=== PATIENT | male | born 1965 | race Caucasian/White ===

== ENCOUNTER 2019-07-10 01:04 | Inpatient (IN) | payer BC ==
[2019-07-10] VITALS (7 sets, daily range): BP systolic 112–163; BP diastolic 75–104
[~2019-07-10] VITALS: Ht 182.9 cm; Wt 107.9 kg
[~2019-07-10 01:04] MED LIST: ALPR0.5T7 PO; ASPI-430 PO; ATOR20TA37 PO; CYCL-259 PO; ISOS30TA8 PO; LISI1TAB20 PO; LISI5TAB7 PO; METF500T17 PO; METO25TA2 PO; METO25TA35 PO; NITR0.4T41 SL; PRAS10TA4 PO; ROSU40TA PO; SIMV40TA PO
--- NOTE | 2019-07-10 01:10 | NUR ---
EKG DONE IN TRIAGE
--- NOTE | 2019-07-10 01:26 | NUR ---
THIS IS A 53Y M THAT COMES IN FOR FEELINGS OF SHORTNESS OF BREATH, CHEST PRESSURE AND AN EMPTY FEELING IN HIS CHEST/ HEART. PT STS HE FEELS LIKE MAYBE THINGS ARE JUST CONSTRICTED AND MAYBE HIS HEART JUST ISN'T GETTING ANY BLOOD SUPPLY. PT CONNECTED TO ALL MONITORING, VSS, NADN, PT SPEAKING IN FULL SENTENCES SKIN WARM AND DRY WITH GOOD COLOR. PT RESTING ON GURNEY. CALL LIGHT IN REACH
[2019-07-10] MEDS ORDERED: ASPIRIN 325 MG TABLET PO ONE (02:00)
[2019-07-10 02:02] LABS: BASOPHILS # (AUTO) 0.06 x10^3/uL (0-0.1); BASOPHILS % (AUTO) 1 % (0-1); EOSINOPHILS # (AUTO) 0.83 x10^3/uL (0-0.4); EOSINOPHILS % (AUTO) 7 % (1-7); LYMPHOCYTES # (AUTO) 4.07 x10^3/uL (1-3.4); LYMPHOCYTES % (AUTO) 35 % (22-44); MD NO; MEAN CORPUSCULAR HEMOGLOBIN 29.6 pg (27.5-34.5); MEAN CORPUSCULAR HGB CONC 33.5 g/dL (33.2-36.2); MEAN CORPUSCULAR VOLUME 88.3 fL (81-97); MEAN PLATELET VOLUME 8.6 fL (7.4-10.4); MONOCYTES # (AUTO) 0.82 x10^3/uL (0.2-0.8); MONOCYTES % (AUTO) 7 % (2-9); NEUTROPHILS # (AUTO) 5.95 x10^3/uL (1.8-6.8); NEUTROPHILS % (AUTO) 51 % (42-75); PLATELET COUNT 268 x10^3/uL (130-400); RED CELL DISTRIBUTION WIDTH 12.9 % (9.4-14.8)
--- NOTE | 2019-07-10 02:10 | NUR ---
PER PT HE HAS TAKEN 2 ASA MD LALO UPDATED
[2019-07-10 02:14] LABS: ALBUMIN 3.7 g/dL (3.4-5.0); ANION GAP 8 mmol/L (5-15); CALCIUM 8.5 mg/dL (8.5-10.1); CHLORIDE 111 mmol/L (98-107)
[2019-07-10 02:18] LABS: TROPONIN I < 0.015 ng/mL (0.000-0.045)
[2019-07-10] MEDS ORDERED: SODIUM CHLORIDE 0.9% 1,000 ML IV SCH (02:59)
[2019-07-10] MEDS ORDERED: hydrALAzine 20 MG/ML, 1ML IVPush PRN (03:00)
[2019-07-10] MEDS ORDERED: PROMETHAZINE 25 MG/ML, 1ML IM PRN (03:00)
[2019-07-10] MEDS ORDERED: POLYETHYLENE GLYCOL 17 GM PACKET PO PRN (03:00)
[2019-07-10] MEDS ORDERED: BISACODYL 10 MG SUPP PR PRN (03:00)
[2019-07-10] MEDS ORDERED: ACETAMINOPHEN 325 MG TABLET PO PRN ×2 (03:00→08:30)
[2019-07-10] MEDS ORDERED: OXYcodone IR 5MG TABLET PO PRN (03:00)
[2019-07-10] MEDS ORDERED: DOCUSATE 100 MG CAPSULE PO PRN (03:00)
[2019-07-10] MEDS ORDERED: ONDANSETRON ODT 4 MG PO PRN (03:00)
[2019-07-10] MEDS ORDERED: morphine SULFATE 10 MG/ML, 1ML IVPush PRN ×2 (03:00→09:00)
[2019-07-10] MEDS ORDERED: ONDANSETRON 2MG/ML, 2ML IVPush PRN (03:00)
--- NOTE | 2019-07-10 03:04 | NUR ---
HOSPITALIST AT BEDSIDE TO ADMIT PT
[2019-07-10 03:40] LABS: FREE T4 (FREE THYROXINE) 0.95 ng/dL (0.76-1.46)
[2019-07-10] MEDS: HEPARIN 5,000 UNITS/ML, 1ML SQ SCH ×3 (03:44→20:58)
[2019-07-10] MEDS ORDERED: ASPI-647 PO (04:52)
[2019-07-10] MEDS ORDERED: CARV25TA PO (04:54)
[2019-07-10] MEDS ORDERED: ASPIRIN 325 MG TABLET EC PO SCH (06:00)
[2019-07-10] MEDS ORDERED: CARVEDILOL 6.25 MG TABLET PO SCH (06:00)
[2019-07-10 06:27] LABS: TROPONIN I < 0.015 ng/mL (0.000-0.045)
[2019-07-10] MEDS: INSULIN LISPRO 100 UNITS/ML, PEN SQ-INSULIN SCH ×4 (08:31→20:58)
[2019-07-10] MEDS ORDERED: REGADENOSON 0.4 MG/5 ML SYRINGE ONE (09:02)
[2019-07-10 12:56] LABS: TROPONIN I < 0.015 ng/mL (0.000-0.045)
[2019-07-10 12:57] LABS: ALBUMIN 3.8 g/dL (3.4-5.0); BILIRUBIN, DIRECT 0.1 mg/dL (0.1-0.2)
[2019-07-10 12:59] LABS: BILIRUBIN,INDIRECT 0.5 mg/dL (0.0-2.0); BILIRUBIN,TOTAL 0.6 mg/dL (0.2-1.0); CHOL/HDL RATIO 6.3; LDL/HDL RATIO 4.1 (0.5-3.0); TOTAL PROTEIN 7.3 g/dL (6.4-8.2)
[2019-07-10] MEDS ORDERED: MAALOX/HYOSCYAMINE/LIDOCAINE 45 ML BTL PO ONE (13:30)
[2019-07-10] MEDS ORDERED: BUSP10TA PO (15:30)
[2019-07-10] MEDS: CARVEDILOL 6.25 MG TABLET PO SCH (18:28)
[2019-07-10] MEDS ORDERED: NITROGLYCERIN 0.4 MG/SPRAY SL PRN (18:30)
[2019-07-10] MEDS ORDERED: NITROGLYCERIN 0.4 MG BOTTLE (25 TABS) SL PRN (18:30)
[2019-07-10] MEDS: NITROGLYCERIN 0.4 MG BOTTLE (25 TABS) SL PRN ×2 (18:49→18:55)
[2019-07-10] MEDS: ATORVASTATIN 40 MG TABLET PO SCH (20:58)
[2019-07-10] MEDS ORDERED: MELATONIN 5 MG TABLET PO PRN (21:30)
[2019-07-11] MEDS: SODIUM CHLORIDE 0.9% 1,000 ML IV SCH ×5 (01:39→20:00)
[2019-07-11 01:53] VITALS: BP 135/94
[2019-07-11 05:13] LABS: BASOPHILS # (AUTO) 0.06 x10^3/uL (0-0.1); BASOPHILS % (AUTO) 1 % (0-1); EOSINOPHILS # (AUTO) 0.51 x10^3/uL (0-0.4); EOSINOPHILS % (AUTO) 5 % (1-7); LYMPHOCYTES # (AUTO) 3.47 x10^3/uL (1-3.4); LYMPHOCYTES % (AUTO) 34 % (22-44); MD NO; MEAN CORPUSCULAR HEMOGLOBIN 30.2 pg (27.5-34.5); MEAN CORPUSCULAR VOLUME 88.6 fL (81-97); MEAN PLATELET VOLUME 8.6 fL (7.4-10.4); MONOCYTES # (AUTO) 0.85 x10^3/uL (0.2-0.8); MONOCYTES % (AUTO) 8 % (2-9); NEUTROPHILS # (AUTO) 5.27 x10^3/uL (1.8-6.8); NEUTROPHILS % (AUTO) 52 % (42-75); PLATELET COUNT 262 x10^3/uL (130-400); RED BLOOD COUNT 4.75 x10^6/uL (4.38-5.82); RED CELL DISTRIBUTION WIDTH 12.8 % (9.4-14.8)
[2019-07-11 05:24] LABS: ALANINE AMINOTRANSFERASE 24 U/L (12-78); ALBUMIN 3.4 g/dL (3.4-5.0); ANION GAP 8 mmol/L (5-15); CALCIUM 8.2 mg/dL (8.5-10.1); CHLORIDE 109 mmol/L (98-107)
[2019-07-11 05:27] LABS: ALKALINE PHOSPHATASE 48 U/L (45-117); BILIRUBIN,TOTAL 0.8 mg/dL (0.2-1.0); CHOL/HDL RATIO 5.9; CHOLESTEROL, TOTAL 217 mg/dL (140-239); CREATININE 1.18 mg/dL (0.7-1.3); HDL CHOL % 17 % (26-37); HDL CHOLESTEROL (DIRECT) 37 mg/dL (40-60); LDL CHOLESTEROL,CALCULATED 124 mg/dL (54-169); LDL/HDL RATIO 3.4 (0.5-3.0); TOTAL PROTEIN 6.8 g/dL (6.4-8.2); TRIGLYCERIDES 281 mg/dL (50-200); VLDL CHOLESTEROL 56 mg/dL (0-25)
[2019-07-11] MEDS: ASPIRIN 81 MG TABLET EC PO SCH (05:46)
[2019-07-11] MEDS: HEPARIN 5,000 UNITS/ML, 1ML SQ SCH ×3 (05:46→21:50)
[2019-07-11] MEDS: CARVEDILOL 6.25 MG TABLET PO SCH ×2 (05:47→17:24)
[2019-07-11] MEDS: INSULIN LISPRO 100 UNITS/ML, PEN SQ-INSULIN SCH ×4 (07:19→21:00)
[2019-07-11 07:40] VITALS: BP 138/87
[2019-07-11 12:40] VITALS: BP 168/98
[2019-07-11] MEDS ORDERED: MIDAZOLAM 1 MG/ML, 5ML ONE (15:34)
[2019-07-11] MEDS ORDERED: VERAPAMIL 2.5 MG/ML, 2ML ONE (15:34)
[2019-07-11] MEDS ORDERED: FENTANYL PF 100 MCG/2ML ONE (15:34)
[2019-07-11] MEDS ORDERED: HEPARIN 1,000 UNITS/ML, 10ML ONE (15:35)
[2019-07-11] MEDS ORDERED: LIDOCAINE-MPF 1%, 5ML ONE (15:35)
[2019-07-11] MEDS ORDERED: BIVALIRUDIN 250 MG ONE ×2 (15:35→16:56)
[2019-07-11] MEDS ORDERED: PRASUGREL 10 MG TABLET ONE (16:51)
[2019-07-11] MEDS ORDERED: BIVALIRUDIN 250 MG in SODIUM CHLORIDE 0.9% 50 ML IV SCH (17:29)
[2019-07-11 19:45] VITALS: BP 143/84
[2019-07-11] MEDS: ATORVASTATIN 40 MG TABLET PO SCH (21:51)
[2019-07-12 00:26] LABS: TROPONIN I 0.028 ng/mL (0.000-0.045)
[2019-07-12 00:55] VITALS: BP 108/69
[2019-07-12] MEDS: SODIUM CHLORIDE 0.9% 1,000 ML IV SCH ×3 (01:00→11:32)
[2019-07-12 04:59] LABS: ANION GAP 7 mmol/L (5-15); CALCIUM 8.8 mg/dL (8.5-10.1); CHLORIDE 109 mmol/L (98-107); CREATININE 1.11 mg/dL (0.7-1.3)
[2019-07-12 05:15] VITALS: BP 130/81
[2019-07-12] MEDS: HEPARIN 5,000 UNITS/ML, 1ML SQ SCH (05:39)
[2019-07-12] MEDS: CARVEDILOL 6.25 MG TABLET PO SCH (06:00)
[2019-07-12] MEDS: ASPIRIN 81 MG TABLET EC PO SCH (06:00)
[2019-07-12] MEDS: INSULIN LISPRO 100 UNITS/ML, PEN SQ-INSULIN SCH ×2 (07:05→12:10)
[2019-07-12 07:30] VITALS: BP 118/74
[2019-07-12] MEDS ORDERED: PRASUGREL 10 MG TABLET PO SCH (09:00)
[2019-07-12] MEDS ORDERED: PRAS10TA4 PO (09:21)
[2019-07-12] MEDS ORDERED: CARV25TA PO (09:21)
[2019-07-12] MEDS ORDERED: ATOR40TA78 PO (09:21)
[2019-07-12] MEDS ORDERED: ASPI81TA45 PO (09:21)
== END 2019-07-12 12:30 | disposition home or self-care (01) | DRG 246 ==
LOC: ED 02:03 → INTOOBSV 02:59 → EDIP 02:59 → 5SO 03:26 → OBSVTOIN 07-11 12:41 → DCLOUNGE 07-12 12:19
PROVIDERS: ADMIT Internal Medicine; ATTEND Internal Medicine
PROC: 027135Z Dilation of Coronary Artery, Two Arteries with Two Drug-eluting Intraluminal Devices, Percutaneous Approach (ICD-10-PCS; principal; 2019-07-11)
PROC: 4A023N7 Measurement of Cardiac Sampling and Pressure, Left Heart, Percutaneous Approach (ICD-10-PCS; 2019-07-11)
PROC: B215YZZ Fluoroscopy of Left Heart using Other Contrast (ICD-10-PCS; 2019-07-11)
PROC: B211YZZ Fluoroscopy of Multiple Coronary Arteries using Other Contrast (ICD-10-PCS; 2019-07-11)
DX: T82.855A Stenosis of coronary artery stent, initial encounter (principal); N17.0 Acute kidney failure with tubular necrosis; I25.110 Atherosclerotic heart disease of native coronary artery with unstable angina pectoris; E11.9 Type 2 diabetes mellitus without complications; E66.9 Obesity, unspecified; Z68.32 Body mass index [BMI] 32.0-32.9, adult; Z91.010 Allergy to peanuts; E78.5 Hyperlipidemia, unspecified; G47.00 Insomnia, unspecified; I10 Essential (primary) hypertension; K21.9 Gastro-esophageal reflux disease without esophagitis; M79.7 Fibromyalgia; Z82.49 Family history of ischemic heart disease and other diseases of the circulatory system; Z83.3 Family history of diabetes mellitus; Z87.891 Personal history of nicotine dependence; Y83.1 Surgical operation with implant of artificial internal device as the cause of abnormal reaction of the patient, or of later complication, without mention of misadventure at the time of the procedure; Y92.89 Other specified places as the place of occurrence of the external cause
CPT/HCPCS: 36415; 93017; 93458; 99285; C9600; 71046; 78452; 80048; 80053; 80061; 80076; 82040; 82962; 83036; 83735; 84439; 84443; 84484; 85025; 93005; 93306; 99156; 99157; C1769; C1894; G0378; J0583; J1644; J2250; J2785; J3010; A9502; C1725; C1874; C1887; C9898; J7030; Q9967